=== PATIENT | female | born 1935 | race Caucasian/White ===

== ENCOUNTER → 2016-12-24 | Outpatient (CLI) | payer OTHER | LOC: FIMAGING 12:20 | PROVIDERS: ATTEND Family Medicine | DX: Z12.31 Encounter for screening mammogram for malignant neoplasm of breast (principal) | CPT/HCPCS: G0202 ==

== ENCOUNTER → 2017-12-25 | Outpatient (CLI) | payer OTHER | LOC: FIMAGING 11:47 | PROVIDERS: ATTEND Family Medicine | DX: Z12.31 Encounter for screening mammogram for malignant neoplasm of breast (principal) ==

== ENCOUNTER → 2018-04-01 | Outpatient (CLI) | payer OTHER | LOC: FIMAGING 15:21 | PROVIDERS: ATTEND Family Medicine | DX: R10.11 Right upper quadrant pain (principal); K87 Disorders of gallbladder, biliary tract and pancreas in diseases classified elsewhere ==

== ENCOUNTER 2018-04-02 14:54 | Inpatient (IN) | payer OTHER ==
--- NOTE | 2018-04-02 15:29 | EDPHY ---
H & P Time Seen by Provider: 04/02/18 15:25 HPI/ROS: Chief complaint. abdominal pain HPI. 82-year-old female with intermittent right upper quadrant abdominal pain for 2 weeks. Worse after eating. Nausea and vomiting with her 1st attack. When she has pain at hurts to take a deep breath however is not short of breath. She has some cough but no fever. Pain is described as aching and in the right upper quadrant. No urinary symptoms but has been having some dark urine. It does not bother her every day but quite severe when she does have it. Again symptoms seemed to begin after eating. Patient had an ultrasound yesterday which showed stones and sludge in the gallbladder and wall thickening 2.5 cm. Her LFTs were elevated. Apparently no Short's sign. ROS Constitutional. no fever/chills, no weakness Eyes. no problems with vision ENT. no sore throat, no nasal drainage Cardiovascular. no chest pain Respiratory. Cough Abdominal. Right upper quadrant abdominal pain with nausea vomiting . no problems urinating MS. no calf pain/swelling, no neck/back pain, no joint pain Skin. no rash Lymph. no swollen glands Neuro. no headache, no dizziness, no difficulty walking or with speech Past Medical/Surgical History: Hypertension, dyslipidemia coronary artery disease with stent Social History: Single, nonsmoker, no alcohol Smoking Status: Never smoked Physical Exam: General Appearance: Alert well-developed female mild distress vital signs stable Eyes: Pupils equal and round no pallor or injection. ENT, Mouth: Mucous membranes are moist. Respiratory: There are no retractions, lungs are clear to auscultation. Cardiovascular: Regular rate and rhythm. Gastrointestinal: Abdomen is soft with tenderness in the right upper quadrant. No masses. Normal bowel sounds Neurological: Awake and alert, sensory and motor exams grossly normal. Skin: Warm and dry, no rashes. Musculoskeletal: Neck is supple nontender. Extremities symmetrical, full range of motion. Psychiatric: Patient is oriented X 3, there is no agitation. Constitutional: Initial Vital Signs Temperature (C) 36.6 C 04/02/18 14:59 Heart Rate 61 04/02/18 14:59 Respiratory Rate 17 04/02/18 14:59 Blood Pressure 133/81 H 04/02/18 14:59 O2 Sat (%) 96 04/02/18 14:59 O2 Delivery Mode Room Air Allergies/Adverse Reactions: Penicillins Allergy (Verified 04/02/18 14:58) Sulfa (Sulfonamide Antibiotics) Allergy (Verified 04/02/18 14:58) Home Medications: Medication Instructions Recorded Lipitor 04/02/18 Lisinopril 04/02/18 Propranolol Sr 04/02/18 Topamax 04/02/18 Medical Decision Making - Diagnostics Imaging Results: Imaging Impressions Chest X-Ray 04/02/18 15:37 Impression: Nothing acute identified. Procedures: IV normal saline, review of records from the last 2 days. ED Course/Re-evaluation: Patient's LFTs are improved today but the bilirubin is more elevated. 4:15 p.m. Patient and I discussed her previous imaging studies laboratory evaluation. We discussed treatment plan including recommendation for admission. She expresses understanding and agreement I consulted and discussed the case with Dr. Ayala for surgery. He would like us to consult GI admitted the hospitalist. I consulted discussed the case with Dr. Castellanos for GI who will see the patient in consultation I have consulted and discussed case with Dr. Allen who agrees to the admission Differential Diagnosis: Currently no evidence for cholecystitis though I considered acute cholecystitis. Patient has abnormal ultrasound with gallstones, sludge and wall thickening. With her resolving LFTs but increasing bilirubin I suspect that the patient has a common bile duct stone - Data Points Laboratory Results: Laboratory Results 04/02/18 15:30 04/02/18 15:30 04/02/18 04/02/18 04/02/18 15:51 15:30 15:30 WBC 7.62 10^3/uL 10^3/uL (3.80-9.50) RBC 3.77 10^6/uL L 10^6/uL (4.18-5.33) Hgb 12.9 g/dL g/dL (12.6-16.3) Hct 38.3 % % (38.0-47.0) MCV 101.6 fL H fL (81.5-99.8) MCH 34.2 pg H pg (27.9-34.1) MCHC 33.7 g/dL g/dL (32.4-36.7) RDW 13.5 % % (11.5-15.2) Plt Count 161 10^3/uL 10^3/uL (150-400) MPV 11.3 fL fL (8.7-11.7) Neut % (Auto) 77.4 % H % (39.3-74.2) Lymph % (Auto) 9.2 % L % (15.0-45.0) [place] % (Auto) 9.7 % % (4.5-13.0) Eos % (Auto) 3.0 % % (0.6-7.6) Baso % (Auto) 0.3 % % (0.3-1.7) Nucleat RBC Rel Count 0.0 % % (0.0-0.2) Absolute Neuts (auto) 5.90 10^3/uL 10^3/uL (1.70-6.50) Absolute Lymphs (auto) 0.70 10^3/uL L 10^3/uL (1.00-3.00) Absolute Monos (auto) 0.74 10^3/uL 10^3/uL (0.30-0.80) Absolute Eos (auto) 0.23 10^3/uL 10^3/uL (0.03-0.40) Absolute Basos (auto) 0.02 10^3/uL 10^3/uL (0.02-0.10) Absolute Nucleated RBC 0.00 10^3/uL 10^3/uL (0-0.01) Immature Gran % 0.4 % % (0.0-1.1) Immature Gran # 0.03 10^3/uL 10^3/uL (0.00-0.10) Sodium 137 mEq/L mEq/L (135-145) Potassium 3.8 mEq/L mEq/L (3.3-5.0) Chloride 104 mEq/L mEq/L (97-110) Carbon Dioxide 21 mEq/l L mEq/l (22-31) Anion Gap 12 mEq/L mEq/L (8-16) BUN 13 mg/dL mg/dL (7-23) Creatinine 0.7 mg/dL mg/dL (0.6-1.0) Estimated GFR > 60 Glucose 89 mg/dL mg/dL (70-100) Calcium 9.4 mg/dL mg/dL (8.5-10.4) Total Bilirubin 3.2 mg/dL H mg/dL (0.1-1.4) Conjugated Bilirubin 2.0 mg/dL H mg/dL (0.0-0.5) Unconjugated Bilirubin 1.2 mg/dL H mg/dL (0.0-1.1) AST 154 IU/L H IU/L (14-46) ALT 325 IU/L H IU/L (9-52) Alkaline Phosphatase 103 IU/L IU/L (38-126) POC Troponin I 0.00 ng/mL ng/mL (0.00-0.08) Total Protein 6.8 g/dL g/dL (6.3-8.2) Albumin 4.0 g/dL g/dL (3.5-5.0) Lipase 223 IU/L IU/L (23-300) Medications Given: Discontinued Medications Sodium Chloride (Ns) 1,000 mls @ 0 mls/hr IV EDNOW ONE; Wide Open PRN Reason: Protocol Stop: 04/02/18 15:38 Last Admin: 04/02/18 15:54 Dose: 1,000 mls Point of Care Test Results: Chemistry 04/02/18 15:51 POC Troponin I 0.00 ng/mL ng/mL (0.00-0.08) Departure - Departure Disposition: Home, Routine, Self-Care Clinical Impression: Abdominal pain Qualifiers: Abdominal location: right upper quadrant Qualified Code(s): R10.11 - Right upper quadrant pain Cholelithiasis Qualifiers: Cholelithiasis location: bile duct Cholecystitis presence: without cholecystitis Biliary obstruction: with biliary obstruction Qualified Code(s): K80.51 - Calculus of bile duct without cholangitis or cholecystitis with obstruction Condition: Fair Referrals: Vilma Coleman MD [Primary Care Provider] - As per Instructions
[2018-04-02] MEDS ORDERED: NS 1,000 ML IV ONE (15:37)
[2018-04-02 15:46] LABS: PLATELET COUNT 161 10^3/uL (150-400)
[2018-04-02] MEDS ORDERED: ONDANSETRON 4 MG/2 ML VIAL IVP PRN (17:12)
[2018-04-02] MEDS ORDERED: oxyCODONE IR 5 MG TAB PO PRN (17:12)
[2018-04-02] MEDS ORDERED: ACETAMINOPHEN 325 MG TAB PO PRN (17:12)
[2018-04-02] MEDS ORDERED: PROMETHAZINE HCL 25 MG/ML INJ IVP PRN (17:12)
[2018-04-02] MEDS ORDERED: HYDROmorphone HCL 0.5 MG/0.5 ML SYR IVP PRN (17:12)
[2018-04-02] MEDS ORDERED: ONDANSETRON DISINTEGRATING 4 MG TAB PO PRN (17:12)
--- NOTE | 2018-04-02 18:39 | SOAPPROG ---
SOAP Progress Note Assessment/Plan: Assessment/Plan: Chart reviewed, pt. not seen yet, formal note to follow. Suspect choledocholithiasis, with elevated LFTs. Cbd normal in size on US, and transaminases better today, so may have passed, but still with elevated TB. - recheck LFTs tomorrow; if not significantly improved, ERCP. If improved, first step might be either MRCP, or just an IOC during eventual cholecystectomy (with post-surgical ERCP, if positive). Thanks! 04/02/18 18:35 Objective: Vital Signs Temp Pulse Resp BP Pulse Ox 36.6 C 62 18 168/73 H 99 04/02/18 17:42 04/02/18 17:42 04/02/18 17:42 04/02/18 17:42 04/02/18 17:42 04/01/18 04/02/18 04/03/18 05:59 05:59 05:59 Intake Total 1000 Output Total 0 Balance 1000 ICD10 Worksheet Patient Problems: Problems Problem Status Onset Abdominal pain Acute Cholelithiasis Acute
--- NOTE | 2018-04-02 19:53 | GHP ---
DATE OF ADMISSION: 04/02/2018 CHIEF COMPLAINT: Abdominal pain. HISTORY: This is an 82-year-old female with past medical history that includes hypertension, hyperli pidemia, as well as coronary artery disease, who presents with 2 weeks of intermittent right upper qu adrant pain occurring while eating. She notes she has had associated nausea and chills. She notes s he has been very fatigued over these last couple of weeks. She notes that her 1st episode of pain wa s severe, but since then it has been more moderate. Other than eating, she does not notice anything that seems to make the pain worse. She did have an ultrasound performed yesterday and labs performed the day before ordered by her primary care physician. At this point, she denies really any complain ts at this moment other than being hungry and states she absolutely needs to eat right away. She is also concerned that she is not going to have a procedure performed this evening to fix her problems b ut otherwise is amenable to remaining in the hospital overnight for observation. PAST MEDICAL HISTORY: Includes: 1. Hypertension. 2. Hyperlipidemia. 3. Coronary artery disease. 4. GERD. PAST SURGICAL HISTORY: Includes: 1. Angioplasty. 2. Appendectomy. 3. ISAI/BSO. FAMILY HISTORY: Parents are . SOCIAL HISTORY: The patient is a daily drinker. She has a remote tobacco use history. 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 She is accompanied by a friend. REVIEW OF SYSTEMS: 10-point review of systems obtained and negative except as per HPI. HOME MEDICATIONS: These need to be confirmed but include Topamax, propranolol, lisinopril, Lipitor. ALLERGIES: Include penicillin and sulfa. PHYSICAL EXAM: VITAL SIGNS: BP 168/73, heart rate 62, respiratory rate 18, O2 sats 99% on room air, temperature is 36.6. GENERAL APPEARANCE: This is an elderly appearing female. She is awake and al ert. She is in no acute distress. EYES: Anicteric. HENT: Oropharynx clear. CARDIOVASCULAR: Reg ular rate and rhythm, no MRG. PULMONARY: CTA bilaterally. Normal work of breathing. ABDOMEN: Mil d tenderness to palpation in the right upper quadrant region without rebound or guarding. Bowel soun ds are present. EXTREMITIES: No clubbing, cyanosis, or edema. SKIN: Warm, dry, well perfused. NE URO/PSYCH: Oriented and appropriate, pleasant. CLINICAL DATA: Labs reviewed notable for white blood cell count of 7.6, hematocrit of 38.3, platelet s of 161, MCV is 101. Her AST is 154 from 1216 two days ago. ALT is 325 from 648. Total bilirubin is 3.2 from 2.3. EKG, personally reviewed and interpreted, shows full sinus rhythm, right bundle branch block is prese nt. Chest x-ray, personally reviewed and interpreted, shows nothing acute. Abdominal ultrasound from shows a limited study. Patient was not n.p.o., but the gallbladder was noted to contain stones an d sludge with wall thickening, but no other evidence of acute cholecystitis. ASSESSMENT AND PLAN: This is an 82-year-old female with likely choledocholithiasis. 1. Choledocholithiasis. The patient continues to have pain. However, her LFTs have significantly i mproved over the last 24 hours. Possible that stone may have passed on its own. However, again symp toms remain, and total bilirubin is again elevated. GI has been consulted. Plan is to monitor LFTs in the morning. If these do not continue to significantly improve, she will likely undergo ERCP jitendra rrow. If her LFTs have improved, definitive treatment may be discharged for elective cholecystectomy with IOC versus MRCP in the morning. This was discussed with the patient at length and although she does feel disappointed she is not going to have a procedure tonight, she does understand the plan. 2. Abdominal pain. This is relatively mild and patient does not like to take opiates and is declini ng them at this time. We will continue to monitor. Secondary to above. 3. Chronic medical problems including hypertension, hyperlipidemia, coronary artery disease, and gas troesophageal reflux disease. We will continue her outpatient management. 4. Disposition: Observation status. Suspect patient will require less than 48-hour stay for evalua tion and management of above. 5. Patient is new to my care. Old records reviewed, summarized as per HPI and past medical history. Care plan reviewed with ER physician, including plans for GI consultation. Further history obtaine d from patient's friend present at bedside. /[id number]/MODL
[2018-04-02] MEDS: NS 1,000 ML IV SCH (21:44)
--- NOTE | 2018-04-02 22:30 | CPEKG ---
Test Reason : OPEN Blood Pressure : / mmHG Vent. Rate : 059 BPM Atrial Rate : 058 BPM P-R Int : 169 ms QRS Dur : 150 ms QT Int : 446 ms P-R-T Axes : 028 087 008 degrees QTc Int : 442 ms Sinus rhythm Right bundle branch block Confirmed by Eligio Gannon ([id number]) on 04/02/2018 10:30:00 PM Referred By: Confirmed By:Eligio Gannon
[2018-04-03 05:32] LABS: PLATELET COUNT 144 10^3/uL (150-400)
[2018-04-03 05:40] LABS: INR 1.05 (0.83-1.16); PROTIME(PATIENT) 13.9 SEC (12.0-15.0)
[2018-04-03] MEDS: NS 1,000 ML IV SCH (09:45)
--- NOTE | 2018-04-03 09:54 | HOSPPROG ---
Hospitalist Progress Note Assessment/Plan: Cholecystitis - u/s prior to admission showed sludge, gallstones and wall thickening. LFT's trending down. No ductal dilatation. Per GI, ERCP not indicated. -gen surg consulted, Dr. Deng to see pt for probable cholecystectomy with IOC -NPO -currently pain free -able to achieve >4 METS exercise CAD - stable, CP free -cont ASA, statin, BB, LEORA Hypertension - cont home meds Hyperlipidemia - cont statin RBBB - reviewed EKG from 04/2017 in [facility], this is chronic Full code DVT PPLX - SCD's for now pending surgery, start Lovenox 24 hrs post-op Dispo - cont inpt Subjective: Pt feels better this am, pain mostly resolved. No N/V. No fevers. NPO this am. Objective: Vital Signs Temp Pulse Resp BP Pulse Ox 37.1 C 64 16 150/65 H 96 04/03/18 04:00 04/03/18 04:00 04/03/18 04:00 04/03/18 04:00 04/03/18 04:00 Laboratory Results 04/03/18 04:47 04/03/18 04:47 04/02/18 04/03/18 04/04/18 05:59 05:59 05:59 Intake Total 1500 828 Output Total 1800 Balance -300 828 PT 13.9 SEC (12.0-15.0) 04/03/18 04:47 INR 1.05 (0.83-1.16) 04/03/18 04:47 - Physical Exam Constitutional: no apparent distress Eyes: PERRL Ears, Nose, Mouth, Throat: moist mucous membranes Cardiovascular: regular rate and rhythym Respiratory: no respiratory distress, clear to auscultation Gastrointestinal: other (soft, nd, mild RUQ TTP, no r/r/g, +BS) Skin: warm Musculoskeletal: full muscle strength Neurologic: AAOx3 Psychiatric: interacting appropriately ICD10 Worksheet Patient Problems: Problems Problem Status Onset Abdominal pain Acute Cholelithiasis Acute
[2018-04-03] MEDS ORDERED: PROPRANOLOL HCL 20 MG TAB PO SCH (10:00)
[2018-04-03] MEDS ORDERED: TOPIRAMATE 25 MG TAB PO SCH (10:00)
--- NOTE | 2018-04-03 10:05 | GCON ---
GI INPATIENT CONSULTATION. DATE OF CONSULTATION: 04/03/2018 I was kindly requested to see Priyanka by Dr. Eligio Gannon in consultation for a chief complaint of abnormal liver tests. She is an 82-year-old white female, who has been having episodes of right upper quadrant abdominal pain for 2 weeks. With this, she has had some nausea, vomiting. She describes the pain as achy. When it does occur, it can be quite severe. The symptoms seem to occur with eating. On April 01, an ultrasound revealed gallstones with a thickened gallbladder wall. Common bile duct was normal in size. In September of this year, she had normal liver tests. On March 31, her AST was 1216, with an ALT of 648. Total bilirubin 2.3. Yesterday, her AST and ALT dropped to 154 and 325. Her total bilirubin remained about the same, at 3.2. Today, her transaminases continue to be better, and her total bilirubin is now 1.7. Normal alkaline phosphatase. Presently, she is feeling well. She denies any further abdominal pain. PAST MEDICAL HISTORY: 1. As above. 2. Hypertension. 3. Elevated lipids. 4. Coronary artery disease with a stent. 5. Otherwise, noncontributory. ALLERGIES: Include penicillin, sulfa. MEDICATIONS: Outpatient medications include: Lipitor, lisinopril, propranolol , and Topamax. Inpatient medications include: IV fluids, pain medicines as needed, and Zofran as needed. SOCIAL HISTORY: She is single. Denies significant alcohol. FAMILY HISTORY: Positive for gallbladder disease. REVIEW OF SYSTEMS: Positive pertinent review of systems as per my HPI. Otherwise, complete review of systems is negative. PHYSICAL EXAM: CONSTITUTIONAL: Nontoxic-appearing, pleasant woman. SKIN: Warm, dry. EYES: Pupils equal, round, reactive to light and accommodation. EARS, NOSE, MOUTH, and THROAT: Oropharynx without masses, moist mucosa. CARDIOVASCULAR: Normal S2, normal PMI. RESPIRATORY: Lungs clear to auscultation and percussion anteriorly. GASTROINTESTINAL: Abdomen is soft, without masses. NEUROLOGIC: Grossly nonfocal. Cranial nerves grossly intact. PSYCHIATRIC: Orientation, insight appropriate. MUSCULOSKELETAL: Strength grossly normal throughout, normal sensation. LABORATORIES: As above. Normal CBC, except for an elevated MCV. Normal coags. ASSESSMENT: 1. Symptomatic cholelithiasis. 2. Elevated liver function tests. I suspect, at some point, she indeed had a common bile duct stone from her above gallstones. However, at this juncture, suspect it may have passed. Her LFT trend is decreasing, with a small common bile duct on imaging. PLAN: 1. No ERCP at this juncture, I suspect she passed her CBD stone. 2. Rather, recommend laparoscopic cholecystectomy with intraoperative cholangiogram. If intraoperative cholangiogram is positive (doubt), we certainly could pursue a postoperative ERCP, with a high success rate. 3. Will recheck liver function tests in the morning. 4. No MRCP needed at this juncture (see above). Thank you for allowing me to help in the management of the patient. Copy requested to: [facility] Hospitalist Service /[id number]/MODL NATALY
--- NOTE | 2018-04-03 12:47 | SOAPPROG ---
HARDY Progress Note Assessment/Plan: Assessment: 82-YEAR-OLD FEMALE WITH RIGHT UPPER QUADRANT PAIN OFF AND ON OVER 2 WEEKS. ULTRASOUND REVEALS STONES AND THICKENED GALLBLADDER. LFTS ELEVATED BUT IMPROVING NONICTERIC ABDOMEN SOFT NONTENDER CHEST CLEAR COR REGULAR RHYTHM IMPRESSION IS SYMPTOMATIC CHOLELITHIASIS AND CHOLECYSTITIS WITH POSSIBLE PASSAGE OF COMMON DUCT STONE RISKS AND OPTIONS FULLY DISCUSSED AND SHE WISHED TO PROCEED WITH SURGERY Plan: LAP CHOLY WITH CHOLANGIOGRAPHY 04/03/18 12:45 Objective: Vital Signs Temp Pulse Resp BP Pulse Ox 36.5 C 56 L 16 157/66 H 98 04/03/18 12:00 04/03/18 12:00 04/03/18 12:00 04/03/18 12:00 04/03/18 12:00 Laboratory Results 04/03/18 04:47 04/03/18 04:47 04/02/18 04/03/18 04/04/18 05:59 05:59 05:59 Intake Total 1500 828 Output Total 1800 Balance -300 828 PT 13.9 SEC (12.0-15.0) 04/03/18 04:47 INR 1.05 (0.83-1.16) 04/03/18 04:47 ICD10 Worksheet Patient Problems: Problems Problem Status Onset Abdominal pain Acute Cholelithiasis Acute
--- NOTE | 2018-04-03 13:07 | GCON ---
HISTORY OF PRESENT ILLNESS: The patient is an 82-year-old female, who presents with right upper quad rant pain intermittently for 2 weeks, but much worse over the last couple of days. She was seen in [facility] ER and found to have gallstones on ultrasound with elevated LFTs. She was admitted at this time f or evaluation. I was consulted for possible surgery. Common duct is normal in size. Her LFTs are i mproving. Her gallbladder wall is thickened with stones. Risks and options have been fully discusse d, and she wishes to proceed with surgery. PAST MEDICAL HISTORY: Includes hypertension and coronary artery disease with stents. She has had an appendectomy and a hysterectomy. ALLERGIES: Penicillin and sulfa. MEDICATIONS: Lipitor, lisinopril, propranolol, and Topamax. FAMILY HISTORY: Positive for biliary tract disease. SOCIAL HISTORY: She does not smoke. PHYSICAL EXAMINATION: GENERAL APPEARANCE: An alert cooperative 82-year-old female in no acute distr ess. HEAD/NECK: Exam reveals no icterus, oral lesions, or adenopathy. CHEST: Clear and symmetric. COR: Regular rhythm. ABDOMEN: Soft, slightly tender in the right upper quadrant without masses. There are no hernias. EXTREMITIES: Benign with full pulses. NEUROLOGIC: Exam is physiologic. PS YCHIATRIC: She is alert, oriented, and cooperative. IMPRESSION: Symptomatic gallstones with cholecystitis. There is possible passage of a common duct s tone. PLAN: Laparoscopic cholecystectomy with cholangiography. The risks and options have been fully disc ussed, and she wishes to proceed. /[id number]/MODL
[2018-04-03] MEDS ORDERED: LR 1,000 ML IV ONE (14:33)
[2018-04-03] MEDS ORDERED: BUPIVACAINE 0.5% 30 ML SDV ONE (14:38)
[2018-04-03] MEDS ORDERED: HEPARIN 1000 UNIT/1 ML MDV ONE ×2 (14:38→14:44)
[2018-04-03] MEDS ORDERED: IOTHALAMATE MEG (CONRAY) 50 ML VIAL IV ONE (14:38)
[2018-04-03] MEDS ORDERED: ceFAZolin 1 GM/5 ML SYR ONE (14:39)
[2018-04-03] MEDS ORDERED: PROPOFOL 200 MG/20 ML VIAL ONE (14:54)
[2018-04-03] MEDS ORDERED: fentaNYL 100 MCG/2 ML INJ ONE ×2 (14:54→17:35)
[2018-04-03] MEDS ORDERED: ONDANSETRON 4 MG/2 ML VIAL ONE (14:56)
[2018-04-03] MEDS ORDERED: DEXAMETHASONE 4 MG/ML VIAL ONE (14:56)
[2018-04-03] MEDS ORDERED: GLYCOPYRROLATE 0.2 MG/1 ML VIAL ONE ×2 (14:56→16:20)
[2018-04-03] MEDS ORDERED: ROCURONIUM 50 MG/5 ML VIAL ONE (14:56)
[2018-04-03] MEDS ORDERED: NEOSTIGMINE METHYLSULFATE 5 MG/5 ML SYR ONE (14:56)
[2018-04-03] MEDS ORDERED: LIDOCAINE 2% 2 ML INJ ONE (14:56)
[2018-04-03] MEDS ORDERED: ONDANSETRON 4 MG/2 ML VIAL IVP PRN (15:07)
[2018-04-03] MEDS ORDERED: LR 500 ML IV PRN (15:07)
[2018-04-03] MEDS ORDERED: NALOXONE HCL 0.4 MG/ML INJ IVP PRN (15:07)
[2018-04-03] MEDS ORDERED: LABETALOL HCL 5 MG/ML 20 ML MDV IVP PRN (15:07)
[2018-04-03] MEDS ORDERED: PROMETHAZINE HCL 25 MG/ML INJ IVP PRN (15:07)
[2018-04-03] MEDS ORDERED: fentaNYL 100 MCG/2 ML INJ IVP PRN (15:07)
--- NOTE | 2018-04-03 15:07 | PDANEPAE ---
ANE Past Medical History - Cardiovascular History Hx Hypertension: Yes Hx Coronary Artery / Peripheral Vascular Disease: Yes - Pulmonary History Hx COPD: No Hx Asthma/Reactive Airway Disease: No Hx Oxygen in Use at Home: No Hx Sleep Apnea: No Sleep Apnea Screening Result - Last Documented: Negative - Endocrine History Hx Diabetes: No Obesity: mild - Chronic Pain History Chronic Pain: No ANE Review of Systems Review of Systems: ANE Patient History - Allergies Allergies/Adverse Reactions: Penicillins Allergy (Verified 04/02/18 19:29) Sulfa (Sulfonamide Antibiotics) Allergy (Verified 04/02/18 19:29) - Home Medications Home medications: home medication list seen and reviewed Home Medications: Atorvastatin Calcium [Lipitor 40 mg (*)] 20 mg PO HS 04/02/18 [Last Taken ] Cholecalciferol Vit D3 [Vitamin D3 (*)] 2,000 units PO DAILY 04/02/18 [Last Taken 04/02/18] Herbals/Supplements -Info Only 1 ea PO DAILY 04/02/18 [Last Taken 04/02/18] Lisinopril [Zestril 10 mg (*)] 10 mg PO HS 04/02/18 [Last Taken 04/01/18] Multivitamins [Multivitamin (*)] 1 each PO DAILY 04/02/18 [Last Taken 04/02/18] Propranolol HCl [Propranolol HCl] 60 mg PO DAILY 04/02/18 [Last Taken 04/02/18] Topiramate 75 mg PO DAILY 04/02/18 [Last Taken 04/02/18] - NPO status NPO Status: no food or drink >8 hours NPO Since - Liquids (Date): 04/03/18 NPO Since - Liquids (Time): 00:00 NPO Since - Solids (Date): 04/03/18 NPO Since - Solids (Time): 00:00 - Anes Hx Anes Hx: no prior problems - Smoking Hx Smoking Status: Never smoked ANE Labs/Vital Signs - Labs Result Diagrams: 04/03/18 04:47 04/03/18 04:47 - Vital Signs Blood Pressure: 173/73 Heart Rate: 55 Respiratory Rate: 16 O2 Sat (%): 99 Height: 162.56 cm Weight: 63.503 kg ANE Physical Exam - Airway Neck exam: FROM Mallampati Score: Class 3 Mouth exam: normal dental/mouth exam - Pulmonary Pulmonary: no respiratory distress, no rales or rhonchi, reduced air movement - Cardiovascular Cardiovascular: regular rate and rhythym, no murmur, rub, or gallop - ASA Status ASA Status: III ANE Anesthesia Plan Anesthesia Plan: general endotracheal anesthesia
--- NOTE | 2018-04-03 16:13 | ASMTCMCOM ---
CM Note CM Note Notes: Chart reviewed and seen in interdisciplinary rounds. Patient admitted via ed for pain and has surgical consult for cholystectomy this afternoon. Needs to be determined. CM to follow for needs. Plan: TBD Date Signed: 04/03/2018 04:11 PM Electronically Signed By:Katja Levin RN
[2018-04-03] MEDS ORDERED: SUGAMMADEX SODIUM 200 MG/2 ML VIAL IVP ONE (16:28)
--- NOTE | 2018-04-03 16:32 | POSTOPPROG ---
Post Op Note Date of Operation: 04/03/18 Surgeon: Ricky Deng Swing Grinder: Yeimi Anesthesiologist: Noemy Anesthesia: GET(General Endotracheal) Pre-op Diagnosis: Acute cholecystitis Post-op Diagnosis: same Indication: pain Procedure: Lap león with cholangiograms Findings: Cholecystitis without cholelithiasis. Negative grams Inf/Abcess present in the surg proc area at time of surgery?: No Depth: Organ Space EBL: Minimal Specimen(s): Gallbladder - permanent
--- NOTE | 2018-04-03 16:39 | POSTANESTH ---
Post Anesthetic Evaluation Cardiovascular Status: Similar to Pre-Op Cond Respiratory Status: Normal, Stable, Similar to Pre-op Cond. Level of Consciousness/Mental Status: Can Participate in Eval, Mildly Sleepy, Arousable Pain Control: Adequate, Prn Tx Ordered Nausea/Vomiting Control: Adequate, Prn Tx Ordered Complications Possibly Related to Anesthesia: None Noted
[2018-04-03] MEDS ORDERED: LABETALOL HCL 5 MG/ML 20 ML MDV ONE (16:56)
[2018-04-03] MEDS ORDERED: ENALAPRILAT DIHYDRATE 1.25 MG/ML VIAL ONE ×2 (17:06→17:27)
[2018-04-03] MEDS ORDERED: ENALAPRILAT DIHYDRATE 1.25 MG/ML VIAL IVP PRN (17:11)
--- NOTE | 2018-04-03 19:49 | GOP ---
DATE OF OPERATION: SURGEON: Ricky Deng MD CAN CLEANER: Yanni Jalloh NP. ANESTHESIA: Dr. Salguero. PREOPERATIVE DIAGNOSIS: Cholelithiasis, cholecystitis and possible common duct stone. POSTOPERATIVE DIAGNOSIS: Cholelithiasis, cholecystitis. PROCEDURE PERFORMED: Laparoscopic cholecystectomy with operative cholangiography. FINDINGS: The patient was found to have an inflamed, thickened gallbladder with small stones. Chola ngiogram was negative with free flow into the duodenum and no filling defects. DESCRIPTION OF PROCEDURE: The patient was taken to the operating room where she received satisfactor y general endotracheal anesthesia by Dr. Salguero. She was placed in supine position, prepped and drape d in the usual sterile fashion. A periumbilical incision was made. A Veress needle was inserted. P neumoperitoneum was established. Trocar was introduced. Laparoscope introduced. Good visualization was obtained. Three other trocars were placed in the upper abdomen under direct vision. The gallbl adder was elevated up. The cystic triangle was carefully exposed. The cystic duct and cystic artery were dissected free. A good clear view was obtained. The artery was multiply hemoclipped and divid ed. The cystic duct was hemoclipped proximally. An incision was made in the cystic duct and a chola ngiogram catheter was brought in through a separate stab incision and positioned in the cystic duct. Cholangiography was done showing free flow into the duodenum and nondilated duct. The catheter was removed. The cystic duct was multiply hemoclipped and divided. The peritoneum of the gallbladder wa s incised. The gallbladder was dissected free from the bed and hepatic fossa and extracted through t he upper midline port site. Hemostasis was assured with electrocautery and some Michael powder. The wound was irrigated, hemostasis was complete. Trocars removed under direct vision. Trocar sites wer e closed with 0 Vicryl for the fascia, 4-0 Monocryl subcuticular stitch for the skin. All layers inf iltrated with 0.5% Marcaine. Blood loss negligible. /[id number]/MODL
[2018-04-03] MEDS ORDERED: ATORVASTATIN CALCIUM 40 MG TAB PO SCH (21:00)
[2018-04-03] MEDS ORDERED: LISINOPRIL 10 MG TAB PO SCH (21:00)
[2018-04-04] MEDS: HYDROCODONE/APAP 5/325 TAB PO PRN ×2 (02:47→15:06)
[2018-04-04] MEDS: NS 1,000 ML IV SCH (02:47)
--- NOTE | 2018-04-04 06:23 | PDMN ---
Medical Necessity Medical necessity: Change to inpt as of 04/03/18 @ 1979. Pt meets inpt criteria per MD order and [facility] [place] M-[id number], Gallbladder or Bile Duct Inflammation or Stone. 82 y /o pt admitted w/RUQ pain, US reveals stones and thickened gallbladder, surg consult- acute cholecystitis,surg intervention- lap león w/cholangiogram. Persistent HTN w/SBP 150's-190's, bradycardic w/HR in 50's. IVF, IV antibiotics, pain management, pt w/ comorbidities including HTM, hyperlipidemia , CAD, GERD, adv age. Anticipate>2MN for ongoing med nec monitoring and treatment.
[2018-04-04] MEDS: ASPIRIN EC 81 MG TAB PO SCH ×2 (08:14→08:23)
[2018-04-04] MEDS ORDERED: PROPRANOLOL 60 MG PO SCH (09:00)
[2018-04-04] MEDS ORDERED: TOPIRAMATE 50 MG PO SCH (09:00)
--- NOTE | 2018-04-04 11:53 | SOAPPROG ---
SOAP Progress Note Assessment/Plan: Assessment/Plan: Excellent work by Dr. Deng appreciated. No e/o any further cbd stone, with IOC negative, TB 1.1. Will sign off. I will arrange repeat LFTs in about four weeks, to make sure her transaminases normalize, as I suspect. Else, please call if we can be of further help [phone]). Thanks! 04/04/18 17:30 Subjective: cc: abnormal LFTs. Denies vomiting, rigors, chills, sweats. Objective: Vital Signs Temp Pulse Resp BP Pulse Ox 36.8 C 50 L 16 162/75 H 99 04/04/18 11:28 04/04/18 11:28 04/04/18 11:28 04/04/18 11:28 04/04/18 11:28 Laboratory Results 04/04/18 04:54 04/04/18 04:54 04/03/18 04/04/18 04/05/18 05:59 05:59 05:59 Intake Total 1943 Output Total 575 500 Balance 1368 -500 PT 13.9 SEC (12.0-15.0) 04/03/18 04:47 INR 1.05 (0.83-1.16) 04/03/18 04:47 Physical Exam - Physical Exam General Appearance: WD/WN, alert, no apparent distress EENT: PERRL/EOMI, normal ENT inspection, pharynx normal, TMs normal Neck: non-tender, full range of motion, supple, normal inspection Respiratory: chest non-tender, lungs clear, normal breath sounds Cardiac/Chest: normal peripheral pulses, regular rate, rhythm Peripheral Pulses: 2+: carotid (R), carotid (L), femoral (R), femoral (L), dorsalis-pedis (R), dorsalis-pedis (L) Abdomen: normal bowel sounds, non-tender, soft Pelvic Exam: deferred Rectal: deferred Back: Normal inspection Skin: normal color, warm/dry Lymphatic: no adenopathy Extremities: normal range of motion, non-tender, normal inspection, normal capillary refill Neuro/Psych: no motor/sensory deficits, alert, normal mood/affect, oriented x 3 ICD10 Worksheet Patient Problems: Problems Problem Status Onset Abdominal pain Acute Cholelithiasis Acute
--- NOTE | 2018-04-04 14:58 | ASMTLACE ---
LACE Length of stay for Answers: Less than 1 day current admission Comorbidities - select Answers: Coronary Artery Disease all that apply Other Notes: HTN; HLD; GERD # of Emergency department Answers: 1-2 visits in the last 6 months Score: 4 Date Signed: 04/04/2018 02:46 PM Electronically Signed By:Katja Levin RN
--- NOTE | 2018-04-04 15:02 | ASMTCMCOM ---
CM Note CM Note Notes: Patient plan of care reviewed in interdisciplinary rounds. She is s/p gall bladder removal with Dr. Deng. Per surgery she can dc home if tolerating diet. Patient given [employer] Whe[employer] pamphlet for dc meals. She has recently moved into [facility] and is unpacking. Referred to call [facility] for assistance from volunteers. No other needs at this time. CM available to assist if needs arise. Plan: Home independently with Meals [employer] Wheels. Date Signed: 04/04/2018 02:53 PM Electronically Signed By:Katja Levin RN
[2018-04-04 15:32] VITALS: BP 173/73
--- NOTE | 2018-04-04 16:13 | GDS ---
DISCHARGE DIAGNOSES: 1. Acute cholecystitis, status post laparoscopic cholecystectomy with normal intraoperative cholangi ogram. 2. Elevated liver enzymes secondary to above, actually improved. 3. Coronary artery disease, stable. 4. Hypertension. 5. Hyperlipidemia. 6. Chronic right bundle branch block. CONSULTANTS: 1. Dr. Ricky Deng, General Surgery. 2. Dr. Bryce Castellanos, Gastroenterology. HISTORY OF DETAILS: Please see the history and physical dated April 02, 2018. In brief, the chana winslow is an 82-year-old female with history of coronary artery disease, hypertension, hyperlipidemia, who presents to the emergency department with abdominal pain. Her workup revealed elevated liver enz ymes, and ultrasound showed gallstones with sludge and gallbladder wall thickening. However, she had no ductal dilatation. With elevated bilirubin, there was concern for possible choledocholithiasis, and GI consult was obtained. Her LFTs actually trended down the following morning, and her pain was improved. ERCP was deferred. General Surgery consult was obtained, and she underwent laparoscopic c holecystectomy with intraoperative cholangiogram, which was negative with free flow into the duodenum and no filling defects. It is possible she passed a stone previously. She had no postoperative com plications. Her pain is controlled on postop day 1. She is able to tolerate a diet. She is evaluat ed by General Surgery and deemed safe for discharge home. Incidentally she did have pyuria with bacteria on her urinalysis, and her urine culture grew greater than 100,000 E coli. She was treated. She received 2 days of IV Levaquin here in the hospital and w ill complete a 3rd day of oral Levaquin tomorrow. She was afebrile, had normal white count, and no e vidence of sepsis. DISPOSITION: Patient is discharged home in stable condition. FOLLOWUP: 1. Dr. Ricky Deng, General Surgery. 2. Dr. Vilma Coleman, primary care. DISCHARGE MEDICATIONS: Please see [facility] for updated completed outpatient medication list. New me dications on discharge include [place] 5/325, 0.5-1 tablet p.o. q.6 hours p.r.n. #10 no refills, Levaqu in 750 mg p.o. once tomorrow to complete a 3-day course. She will continue all other outpatient medi cations previously prescribed. Changed medications: Propranolol was decreased to 60 mg daily as thi s is what she was receiving here, and her heart rate was in the high 40s to 50s. /[id number]/MODL
--- NOTE | 2018-04-04 16:16 | SOAPPROG ---
SOAP Progress Note Assessment/Plan: Assessment/plan 82 y/o F s/p lap león POD #1. Pt seen by Dr. Deng. Pt doing well. Incision site is cdi. LFTs trending down. Abdomen soft. Can go from surgery standpoint as long as she is tolerating regular diet. 04/04/18 16:14 Objective: Vital Signs Temp Pulse Resp BP Pulse Ox 36.9 C 59 L 16 173/73 H 100 04/04/18 15:28 04/04/18 15:28 04/04/18 15:28 04/04/18 15:28 04/04/18 15:28 Laboratory Results 04/04/18 04:54 04/04/18 04:54 04/03/18 04/04/18 04/05/18 05:59 05:59 05:59 Intake Total 1943 Output Total 575 500 Balance 1368 -500 PT 13.9 SEC (12.0-15.0) 04/03/18 04:47 INR 1.05 (0.83-1.16) 04/03/18 04:47 ICD10 Worksheet Patient Problems: Problems Problem Status Onset Abdominal pain Acute Cholelithiasis Acute
[2018-04-05] MEDS ORDERED: ASPIRIN EC 81 MG TAB PO SCH (21:00)
== END 2018-04-04 17:17 | disposition home or self-care (01) | DRG 418 ==
LOC: INTOOBSV 16:36 → F1N 17:37 → OBSVTOIN 04-03 15:58
PROVIDERS: ADMIT Internal Medicine; ATTEND Internal Medicine
PROC: 0FT44ZZ Resection of Gallbladder, Percutaneous Endoscopic Approach (ICD-10-PCS; principal; 2018-04-03 14:00)
DX: K80.00 Calculus of gallbladder with acute cholecystitis without obstruction (principal); N39.0 Urinary tract infection, site not specified; B96.20 Unspecified Escherichia coli [E. coli] as the cause of diseases classified elsewhere; E86.9 Volume depletion, unspecified; I25.10 Atherosclerotic heart disease of native coronary artery without angina pectoris; I10 Essential (primary) hypertension; E78.5 Hyperlipidemia, unspecified; I45.19 Other right bundle-branch block
CPT/HCPCS: 84484-PO; 97161-GP; 97165-GO; G0378; G8978-GP-CI; G8979-GP-CI; G8980-GP-CI; G8987-GO-CJ; G8988-GO-CI; J1100; J1956; J2405; J2704; J2710; J3010; Q9961

== ENCOUNTER → 2018-12-30 | Outpatient (CLI) | payer OTHER | LOC: FIMAGING 09:53 ==